=== PATIENT | male | born 1955 | race Caucasian/White ===

== ENCOUNTER 2019-08-22 10:31 | Outpatient (CLI) | payer BC, SELFPAY ==
[2019-08-22 10:56] LABS: Basophils Absolute Auto 0.1 K/mm3 (0.0-0.1); Eosinophils Absolute Auto 0.2 K/mm3 (0-0.3); Eosinophils Percent Auto 3.5 % (0-4.4); Hematocrit 44.9 % (42.0-52.0); Hemoglobin 15.6 g/dL (14.0-18.0); Immature Granulocyte Absolute 0.03 K/mm3 (0.00-0.031); Immature Granulocyte Percent A 0.6 % (0-0.5); Lymphocytes Absolute Auto 1.31 K/mm3 (0.9-3.2); Lymphocytes Percent Auto 25.2 % (18.3-44.2); Mean Corpuscular HGB Conc 34.7 g/dl (32-36); Mean Corpuscular Hemoglobin 31.5 pg (26-34); Mean Corpuscular Volume 90.7 fl (80-100); Mean Platelet Volume 9.7 fl (7.4-10.4); Monocytes Absolute Auto 0.7 K/mm3 (0.1-0.6); Monocytes Percent Auto 13.1 % (2.6-8.5); Neutrophils Absolute Auto 2.9 K/mm3 (1.3-6.7); Neutrophils Percent Auto 56.6 % (45.5-73.1); Platelet Count Result 213 k/mm3 (150-375); Red Blood Count 4.95 M/mm3 (4.6-6.20); Red Cell Distribution Width 13.1 % (11.5-14.5); White Blood Count 5.2 K/mm3 (4.5-10.0)
[2019-08-22 11:07] LABS: Hemoglobin A1C 5.5 % (<5.7)
[2019-08-22 11:08] LABS: Blood Urea Nitrogen 35 mg/dL (9-20); Carbon Dioxide 27 mmol/L (22-30); Chloride 104 mmol/L (98-107); Cholesterol 189 mg/dL (0-200); Estimated Glomerular Filt Rate > 60; Glucose 108 mg/dL (75-110); HDL Direct 40 mg/dL; Potassium 4.2 mmol/L (3.4-5.0); Sodium 140 mmol/L (137-145); Triglycerides 171 mg/dL (<150)
[2019-08-22 11:19] LABS: LDL Cholesterol Direct 109 mg/dL
[2019-08-22 11:39] LABS: Prostate Specific Antigen 0.6 ng/mL (< OR = 4.0)
[2019-08-24 05:07] LABS: Homocysteine 8.5 umol/L (<11.4)
[2019-08-29 15:54] LABS: Triiodothyronine T3 Free 3.4 pg/mL (2.3-4.2)
== END 2019-08-22 10:32 | disposition home or self-care (01) ==
PROVIDERS: PCP Internal Medicine; Visit Provider Internal Medicine
DX: E78.2 Mixed hyperlipidemia (principal); R94.6 Abnormal results of thyroid function studies; Z12.5 Encounter for screening for malignant neoplasm of prostate; Z79.899 Other long term (current) drug therapy
CPT/HCPCS: 36415; 80048; 80061; 82542; 83036; 83090; 84153; 84439; 84443; 84481; 85025; G0103

== ENCOUNTER 2020-03-04 07:18 | Outpatient (CLI) | payer BC, SELFPAY ==
[2020-03-04 08:07] LABS: Blood Urea Nitrogen 26 mg/dL (9-20); Calcium 8.8 mg/dL (8.4-10.2); Carbon Dioxide 32 mmol/L (22-30); Chloride 100 mmol/L (98-107); Estimated Glomerular Filt Rate > 60; Glucose 121 mg/dL (75-110); Sodium 136 mmol/L (137-145)
[2020-03-04 08:36] LABS: Free T4 Free Thyroxine 0.97 ng/mL (0.78-2.19)
[2020-03-05 14:07] LABS: Cholesterol 146 mg/dL (0-200); HDL Direct 30 mg/dL; Triglycerides 364 mg/dL (<150)
[2020-03-05 14:13] LABS: LDL Cholesterol Direct 71 mg/dL
== END 2020-03-04 07:19 | disposition home or self-care (01) ==
PROVIDERS: PCP Internal Medicine; Visit Provider Internal Medicine
DX: Z79.899 Other long term (current) drug therapy (principal); E78.2 Mixed hyperlipidemia
CPT/HCPCS: 36415; 80048; 80061; 84439; 84443

== ENCOUNTER 2020-05-14 09:07 | Outpatient (CLI) | payer BC, SELFPAY ==
[2020-05-14 09:59] LABS: Basophils Absolute Auto 0.1 K/mm3 (0.0-0.1); Eosinophils Absolute Auto 0.2 K/mm3 (0-0.3); Eosinophils Percent Auto 3.5 % (0-4.4); Hematocrit 42.1 % (42.0-52.0); Hemoglobin 14.6 g/dL (14.0-18.0); Immature Granulocyte Absolute 0.04 K/mm3 (0.00-0.031); Immature Granulocyte Percent A 0.8 % (0-0.5); Lymphocytes Absolute Auto 1.32 K/mm3 (0.9-3.2); Lymphocytes Percent Auto 27.3 % (18.3-44.2); Mean Corpuscular HGB Conc 34.7 g/dl (32-36); Mean Corpuscular Hemoglobin 31.3 pg (26-34); Mean Corpuscular Volume 90.3 fl (80-100); Mean Platelet Volume 10.3 fl (7.4-10.4); Monocytes Absolute Auto 0.6 K/mm3 (0.1-0.6); Neutrophils Absolute Auto 2.6 K/mm3 (1.3-6.7); Neutrophils Percent Auto 54.4 % (45.5-73.1); Platelet Count Result 207 k/mm3 (150-375); Red Blood Count 4.66 M/mm3 (4.6-6.20); Red Cell Distribution Width 13.5 % (11.5-14.5); White Blood Count 4.8 K/mm3 (4.5-10.0)
[2020-05-14 10:18] LABS: Alanine Aminotransferase 22 U/L (4-50); Albumin Level 4.3 g/dL (3.5-5.1); Alkaline Phosphatase 38 U/L (38-126); Anion Gap 6 mmol/L (8-16); Aspartate Amino Transferase 25 U/L (17-59); Bilirubin,Total 0.3 mg/dL (0.2-1.3); Blood Urea Nitrogen 32 mg/dL (9-20); Calcium 8.9 mg/dL (8.4-10.2); Carbon Dioxide 29 mmol/L (22-30); Chloride 103 mmol/L (98-107); Creatine Kinase 94 U/L (55-170); Estimated Glomerular Filt Rate > 60; Glucose 111 mg/dL (75-110); Potassium 4.1 mmol/L (3.4-5.0); Sodium 138 mmol/L (137-145)
[2020-05-14 10:43] LABS: Hemoglobin A1C 5.6 % (<5.7)
[2020-05-15 18:19] LABS: Cholesterol 154 mg/dL (0-200); HDL Direct 44 mg/dL; Triglycerides 103 mg/dL (<150)
[2020-05-15 18:30] LABS: LDL Cholesterol Direct 90 mg/dL
[2020-05-17 06:48] LABS: Homocysteine 12.3 umol/L (<11.4)
[2020-05-17 20:02] LABS: Vitamin D 1,25 (OH)2 Total 66 pg/mL (18-72); Vitamin D2 1,25 (OH)2 <8 pg/mL; Vitamin D3 1,25 (OH)2 66 pg/mL
== END 2020-05-14 09:08 | disposition home or self-care (01) ==
LOC: ANHLAB 09:08
PROVIDERS: PCP Internal Medicine; Visit Provider Internal Medicine
DX: E55.9 Vitamin D deficiency, unspecified (principal); Z79.899 Other long term (current) drug therapy; R79.89 Other specified abnormal findings of blood chemistry
CPT/HCPCS: 36415; 80053; 80061; 82550; 82652; 83036; 83090; 85025

== ENCOUNTER 2020-06-25 10:49 | Outpatient (CLI) | payer BC, SELFPAY ==
--- NOTE | ~2020-06-25 | CT_ITS ---
EXAMINATION: CT abdomen pelvis w con DATE: 06/25/2020 12:48 INDICATION: Left low abdominal pain for one week TECHNIQUE: Computed tomography (CT) of the abdomen and pelvis was performed with 100 cc Omnipaque 350 intravenous contrast. Automated exposure control and iterative reconstruction technique were employe d. Exam dose: 589.28 mGy-cm total exam DLP. COMPARISON: None. FINDINGS: The lung bases are clear. Normal heart size. No pericardial or pleural effusion. There are multiple hepatic cysts, measuring up to approximately 1.4 centers maximal dimension. No alvaro picious hepatic mass is detected. The gallbladder is present. No bile duct or pancreatic duct dilatat ion. No pancreatic mass lesion or calcification. Normal splenic size. Normal morphology of the adrena l glands. Approximately 6.5 mm right renal cyst. Nonobstructing lower pole 4 mm left renal calculus. No ureteral calculus or hydroureteronephrosis is noted on either side. The urinary bladder is unremarkable. There is mild prostate enlargement. There are numerous prostate calcifications. There is atherosclerotic calcification of the abdominal aorta. No abdominal aortic aneurysm. No intra peritoneal or retroperitoneal or pelvic mass lesion or adenopathy or ascites. There are numerous diverticula of the sigmoid and descending colon. There is a focal area of pericoli c fat stranding descending colon consistent with uncomplicated mild distal descending colon diverticu litis. No abscess. No free intraperitoneal air is noted. Small fat-containing inguinal hernias. Degenerative spurring of the lower thoracic spine and to a lesser extent the lumbar spine. No suspici ous osteolytic or osteoblastic lesions are noted. IMPRESSION: Mild localized distal descending colon diverticulitis Hepatic and right renal cysts Nonobstructing lower pole left renal 4 mm calculus I telephoned the results to Dr. Jackson on 06/25/2020 at 1300 hours. Reviewed, dictated and finalized at [facility]. Reviewed, dictated and finalized at location [facility].
[2020-06-25 12:41] LABS: Estimated Glomerular Filt Rate > 60
== END 2020-06-25 10:50 | disposition home or self-care (01) ==
PROVIDERS: PCP Internal Medicine; Visit Provider Internal Medicine
DX: K76.89 Other specified diseases of liver (principal); N28.1 Cyst of kidney, acquired; N20.0 Calculus of kidney
CPT/HCPCS: 74177; Q9967

== ENCOUNTER 2020-09-09 08:31 | Outpatient (CLI) | payer BC, SELFPAY ==
[2020-09-09 08:56] LABS: Basophils Percent Auto 0.7 % (0.2-1.2); Eosinophils Absolute Auto 0.2 K/mm3 (0-0.3); Eosinophils Percent Auto 3.2 % (0-4.4); Hematocrit 43.7 % (42.0-52.0); Hemoglobin 15.3 g/dL (14.0-18.0); Immature Granulocyte Absolute 0.05 K/mm3 (0.00-0.031); Immature Granulocyte Percent A 0.8 % (0-0.5); Mean Corpuscular Hemoglobin 31.5 pg (26-34); Mean Corpuscular Volume 90.1 fl (80-100); Mean Platelet Volume 9.4 fl (7.4-10.4); Monocytes Absolute Auto 0.8 K/mm3 (0.1-0.6); Monocytes Percent Auto 12.8 % (2.6-8.5); Neutrophils Absolute Auto 3.5 K/mm3 (1.3-6.7); Neutrophils Percent Auto 57.5 % (45.5-73.1); Platelet Count Result 226 k/mm3 (150-375); Red Blood Count 4.85 M/mm3 (4.6-6.20); Red Cell Distribution Width 13.2 % (11.5-14.5)
[2020-09-09 09:08] LABS: Alanine Aminotransferase 24 U/L (4-50); Albumin Level 4.1 g/dL (3.5-5.1); Alkaline Phosphatase 35 U/L (38-126); Anion Gap 6 mmol/L (8-16); Aspartate Amino Transferase 30 U/L (17-59); Bilirubin,Total 0.5 mg/dL (0.2-1.3); Blood Urea Nitrogen 34 mg/dL (9-20); Calcium 8.9 mg/dL (8.4-10.2); Carbon Dioxide 28 mmol/L (22-30); Chloride 103 mmol/L (98-107); Cholesterol 182 mg/dL (0-200); Creatine Kinase 112 U/L (55-170); Estimated Glomerular Filt Rate > 60; Glucose 109 mg/dL (75-110); HDL Direct 51 mg/dL; Sodium 137 mmol/L (137-145); Triglycerides 108 mg/dL (<150)
[2020-09-09 09:18] LABS: LDL Cholesterol Direct 121 mg/dL
[2020-09-09 09:36] LABS: Free T4 Free Thyroxine 0.87 ng/mL (0.78-2.19)
[2020-09-09 09:39] LABS: Prostate Specific Antigen 0.5 ng/mL (< OR = 4.0)
[2020-09-12 12:49] LABS: Homocysteine 10.1 umol/L (<11.4)
== END 2020-09-09 08:32 | disposition home or self-care (01) ==
PROVIDERS: PCP Internal Medicine; Visit Provider Internal Medicine
DX: R94.6 Abnormal results of thyroid function studies (principal); Z12.5 Encounter for screening for malignant neoplasm of prostate; Z79.899 Other long term (current) drug therapy; E78.1 Pure hyperglyceridemia; R79.89 Other specified abnormal findings of blood chemistry
CPT/HCPCS: 36415; 80053; 80061; 82550; 83090; 84153; 84439; 84443; 85025; G0103

== ENCOUNTER → 2020-12-24 04:28 | Outpatient (CLI) | payer BC, SELFPAY ==
[2020-12-24 19:03] LABS: SARS-CoV-2 RNA PCR Negative
== END ==
PROVIDERS: PCP Internal Medicine; Visit Provider Internal Medicine Gastroenterology
DX: Z01.812 Encounter for preprocedural laboratory examination (principal); Z20.822 Contact with and (suspected) exposure to COVID-19
CPT/HCPCS: C9803; U0003; U0005

== ENCOUNTER 2020-12-27 02:16 | Day surgery (SDC) | payer BC, SELFPAY ==
[2020-12-16 14:41] VITALS: BMI 30.9
[2020-12-27 10:49] VITALS: BP 118/75; PULSE 80; RESP 18; TEMP 36.1; O2SAT 98
--- NOTE | 2020-12-27 10:57 | WPDANESEPPF ---
Anes - Initial Pre Proc Eval Procedure: Operation Date: 12/27/20 11:30 Proposed Procedures p Screening Colonoscopy - Anastacio Ewing MD Date/Time: 12/27/20 10:57 Surgeon: Anastacio Ewing MD Pre Op Diagnosis: neoplasm screening Patient Data Age: 65 Gender: M Height: 5 ft 9 in Weight: 97.1 kg Last Vital Signs Temp 36.1 C L 12/27/20 10:49 Pulse 80 12/27/20 10:49 Resp 18 12/27/20 10:49 BP 118/75 12/27/20 10:49 Pulse Ox 98 12/27/20 10:49 Allergies Allergy/AdvReac Type Severity Reaction Status Date / Time Fsvndqz-Xrc-Had Reductase AdvReac Muscle Pain Verified 12/27/20 10:48 Inhibitor Home Medications Medication Instructions Recorded Confirmed Type ezetimibe 10 mg tablet 10 mg PO DAILY #90 tablet 11/14/19 12/16/20 Rx omega-3 fatty acids 1,000 mg 2,000 mg PO BID #90 cap 03/06/20 12/16/20 Rx capsule fenofibrate micronized 134 mg 134 mg PO DAILY #90 cap 03/11/20 12/16/20 Rx capsule folic acid 1 mg tablet 1 mg PO DAILY #90 tablet 05/22/20 12/16/20 Rx aspirin 81 mg tablet,delayed 81 mg PO DAILY 06/25/20 12/16/20 History release diphenhydramine HCl 50 mg capsule 50 mg PO .nightly PRN cap 06/25/20 12/16/20 History tamsulosin [Flomax] 0.4 mg PO DAILY 12/16/20 History Patient hx anesthesia problems: none Family hx anesthesia problems: none PMFSH Past Medical History Medical History Abnormal thyroid function test BMI 29.0-29.9,adult BMI 31.0-31.9,adult BMI 32.0-32.9,adult Colon cancer screening Elevated homocysteine Encounter for preventive health examination Encounter for routine adult health examination without abnormal findings Encounter for special screening examination for neoplasm of prostate Follow up Frequent stools Hyperlipidemia LLQ abdominal pain Nocturia On correction drug therapy RBBB (right bundle branch block) Skin tag Statin intolerance Urinary urgency Vitamin D deficiency Family History Family History Father Malignant neoplasm of prostate Mother Family history of malignant neoplasm of breast in first degree relative Other Diabetes mellitus Family history of arthritis Family history of malignant neoplasm Hypertension Social History Social History Smoking status: Never smoker Alcohol intake: current Drinks per week: 5 Living arrangements: with family Gender identity (if verbalized by the patient): Male Sexual Orientation (if Verbalized by the Patient): Straight or Heterosexual Spiritual care concerns: No Anes - Eval Final PreProcedure Day of Procedure 12/27/20 10:57 Patient weight: obese Heart: regular rate and rhythm Lungs: clear to auscultation Airway: Mallampati scale class II Neurological: alert and oriented Last oral intake: >/= 8 hours ASA classification: II Emergent: no Anesthetic plan: proceed Anesthesia type and monitoring: general GIVS and standard monitoring Informed Consent: The patient's anesthetic plan and its attendant risks and benefits were discussed with the patient/family/POA. Questions were solicited and answers provided to the satisfaction of the patient/family/POA.
[2020-12-27] MEDS: LACTATED RINGERS 1,000 ML 150 ML IV CONT (11:04)
--- NOTE | 2020-12-27 11:21 | PM.HPGS ---
History of Present Illness History of Present Illness Consent: Risks, benefits, and alternatives have been discussed and questions answered. Patient agrees to proceed with procedure. Chief complaint: neoplasm screening Narrative: Michael Gross is a 65 year old male here for colon cancer screening. He had a polyp removed 5 years ago Review of Systems Review of Systems: All systems reviewed & are unremarkable except as noted in HPI and below PMFSH Past Medical History Medical History Abnormal thyroid function test BMI 29.0-29.9,adult BMI 31.0-31.9,adult BMI 32.0-32.9,adult Colon cancer screening Elevated homocysteine Encounter for preventive health examination Encounter for routine adult health examination without abnormal findings Encounter for special screening examination for neoplasm of prostate Follow up Frequent stools Hyperlipidemia LLQ abdominal pain Nocturia On longterm drug therapy RBBB (right bundle branch block) Skin tag Statin intolerance Urinary urgency Vitamin D deficiency Family History Family History Father Malignant neoplasm of prostate Mother Family history of malignant neoplasm of breast in first degree relative Other Diabetes mellitus Family history of arthritis Family history of malignant neoplasm Hypertension Social History Social History Smoking status: Never smoker Alcohol intake: current Drinks per week: 5 Living arrangements: with family Gender identity (if verbalized by the patient): Male Sexual Orientation (if Verbalized by the Patient): Straight or Heterosexual Spiritual care concerns: No Meds Home Medications and Allergies Home Medications Medication Instructions Recorded Confirmed Type ezetimibe 10 mg tablet 10 mg PO DAILY #90 tablet 11/14/19 12/16/20 Rx omega-3 fatty acids 1,000 mg 2,000 mg PO BID #90 cap 03/06/20 12/16/20 Rx capsule fenofibrate micronized 134 mg 134 mg PO DAILY #90 cap 03/11/20 12/16/20 Rx capsule folic acid 1 mg tablet 1 mg PO DAILY #90 tablet 05/22/20 12/16/20 Rx aspirin 81 mg tablet,delayed 81 mg PO DAILY 06/25/20 12/16/20 History release diphenhydramine HCl 50 mg capsule 50 mg PO .nightly PRN cap 06/25/20 12/16/20 History tamsulosin [Flomax] 0.4 mg PO DAILY 12/16/20 History Allergies Allergy/AdvReac Type Severity Reaction Status Date / Time Yofomqs-Hcz-Qfn Reductase AdvReac Muscle Pain Verified 12/27/20 10:48 Inhibitor Vital Signs Vital Signs - 24 hr 12/27/20 10:49 Temperature 36.1 C L Pulse Rate 80 Respiratory Rate 18 Blood Pressure 118/75 Pulse Oximetry 98 Exam Resp: Auscultation: clear to auscultation bilaterally Cardio: Rate: regular rate Rhythm: regular rhythm GI: GI Palp: Yes Soft to palpation and No Tenderness to palpation present (GI) Assessment and Plan Assessment and plan (1) Colon cancer screening: Code(s): Z12.11 - Encounter for screening for malignant neoplasm of colon Status: Acute Assessment and Plan: Colonoscopy with possible biopsy or polypectomy or cautery or injection of substances.
[2020-12-27 11:44] VITALS: BP 109/66; PULSE 75; RESP 17; O2SAT 99
[2020-12-27 11:54] VITALS: BP 129/62; PULSE 71; RESP 16; O2SAT 99
[2020-12-27 12:04] VITALS: BP 112/77; PULSE 68; RESP 18; O2SAT 99
== END 2020-12-27 12:30 | disposition home or self-care (01) ==
PROVIDERS: PCP Internal Medicine; Visit Provider Internal Medicine Gastroenterology
PROC: 0DJD8ZZ Inspection of Lower Intestinal Tract, Via Natural or Artificial Opening Endoscopic (ICD-10-PCS; CPT 45378; principal; 2020-12-27 11:30)
DX: Z12.11 Encounter for screening for malignant neoplasm of colon (principal); D12.2 Benign neoplasm of ascending colon; K57.30 Diverticulosis of large intestine without perforation or abscess without bleeding; Z79.82 Long term (current) use of aspirin; E78.5 Hyperlipidemia, unspecified; I45.10 Unspecified right bundle-branch block; E55.9 Vitamin D deficiency, unspecified; E66.8 Other obesity; Z68.31 Body mass index [BMI] 31.0-31.9, adult
CPT/HCPCS: 45380; 88305; J2704; J7120

== ENCOUNTER 2021-02-26 09:16 | Outpatient (CLI) | payer BC, SELFPAY ==
[2021-02-26 09:56] LABS: Anion Gap 7 mmol/L (8-16); Blood Urea Nitrogen 31 mg/dL (9-20); Calcium 8.8 mg/dL (8.4-10.2); Carbon Dioxide 27 mmol/L (22-30); Chloride 106 mmol/L (98-107); Cholesterol 222 mg/dL (0-200); Estimated Glomerular Filt Rate > 60; Glucose 112 mg/dL (75-110); HDL Direct 41 mg/dL; Potassium 4.2 mmol/L (3.4-5.0); Sodium 140 mmol/L (137-145); Triglycerides 173 mg/dL (<150)
[2021-02-26 10:07] LABS: LDL Cholesterol Direct 114 mg/dL
[2021-02-26 10:30] LABS: Free T4 Free Thyroxine 0.79 ng/mL (0.78-2.19)
[2021-03-01 05:09] LABS: Vitamin D 1,25 (OH)2 Total 44 pg/mL (18-72); Vitamin D2 1,25 (OH)2 <8 pg/mL; Vitamin D3 1,25 (OH)2 44 pg/mL
== END 2021-02-26 09:17 | disposition home or self-care (01) ==
PROVIDERS: PCP Internal Medicine; Visit Provider Internal Medicine
DX: R94.6 Abnormal results of thyroid function studies (principal); E55.9 Vitamin D deficiency, unspecified; E78.1 Pure hyperglyceridemia; Z79.899 Other long term (current) drug therapy
CPT/HCPCS: 36415; 80048; 80061; 82652; 84439; 84443

== ENCOUNTER → 2021-04-04 06:57 | Outpatient (CLI) | payer BC, SELFPAY ==
[2021-04-04 19:11] LABS: SARS-CoV-2 RNA PCR Negative
== END ==
PROVIDERS: PCP Internal Medicine; Visit Provider Internal Medicine
DX: R68.89 Other general symptoms and signs (principal); Z20.822 Contact with and (suspected) exposure to COVID-19
CPT/HCPCS: C9803; U0003; U0005

== ENCOUNTER 2021-06-25 13:23 | Outpatient (CLI) | payer BC, SELFPAY ==
[2021-06-25 14:21] LABS: Basophils Absolute Auto 0.1 K/mm3 (0.0-0.1); Basophils Percent Auto 0.8 % (0.2-1.2); Eosinophils Absolute Auto 0.2 K/mm3 (0-0.3); Eosinophils Percent Auto 2.9 % (0-4.4); Hematocrit 43.7 % (42.0-52.0); Hemoglobin 15.9 g/dL (14.0-18.0); Immature Granulocyte Absolute 0.03 K/mm3 (0.00-0.031); Immature Granulocyte Percent A 0.5 % (0-0.5); Lymphocytes Absolute Auto 1.46 K/mm3 (0.9-3.2); Lymphocytes Percent Auto 23.2 % (18.3-44.2); Mean Corpuscular HGB Conc 36.4 g/dl (32-36); Mean Corpuscular Hemoglobin 32.5 pg (26-34); Mean Corpuscular Volume 89.4 fl (80-100); Mean Platelet Volume 10.1 fl (7.4-10.4); Monocytes Absolute Auto 0.7 K/mm3 (0.1-0.6); Monocytes Percent Auto 11.1 % (2.6-8.5); Neutrophils Absolute Auto 3.9 K/mm3 (1.3-6.7); Neutrophils Percent Auto 61.5 % (45.5-73.1); Platelet Count Result 189 k/mm3 (150-375); Red Blood Count 4.89 M/mm3 (4.6-6.20); Red Cell Distribution Width 13.7 % (11.5-14.5); White Blood Count 6.3 K/mm3 (4.5-10.0)
[2021-06-25 14:31] LABS: Alanine Aminotransferase 31 U/L (4-50); Albumin Level 4.6 g/dL (3.5-5.1); Alkaline Phosphatase 57 U/L (38-126); Anion Gap 8 mmol/L (8-16); Aspartate Amino Transferase 29 U/L (17-59); Bilirubin,Total 0.6 mg/dL (0.2-1.3); Blood Urea Nitrogen 26 mg/dL (9-20); Calcium 9.2 mg/dL (8.4-10.2); Carbon Dioxide 28 mmol/L (22-30); Chloride 102 mmol/L (98-107); Cholesterol 205 mg/dL (0-200); Estimated Glomerular Filt Rate > 60; Glucose 101 mg/dL (65-110); HDL Direct 41 mg/dL; Sodium 138 mmol/L (137-145); Triglycerides 439 mg/dL (<150)
[2021-06-25 14:42] LABS: LDL Cholesterol Direct 83 mg/dL
[2021-06-30 00:12] LABS: Vitamin D 1,25 (OH)2 Total 32 pg/mL (18-72); Vitamin D2 1,25 (OH)2 <8 pg/mL; Vitamin D3 1,25 (OH)2 32 pg/mL
== END 2021-06-25 13:24 | disposition home or self-care (01) ==
PROVIDERS: PCP Internal Medicine; Visit Provider Internal Medicine
DX: R94.6 Abnormal results of thyroid function studies (principal); Z79.899 Other long term (current) drug therapy; E55.9 Vitamin D deficiency, unspecified; E78.1 Pure hyperglyceridemia
CPT/HCPCS: 36415; 80053; 80061; 82652; 84439; 84443; 85025

== ENCOUNTER 2021-09-16 13:22 | Outpatient (CLI) | payer BC, SELFPAY ==
[2021-09-16 14:47] LABS: SARS-CoV-2 RNA PCR Negative (Negative)
[2021-09-17 07:13] LABS: Influenza A QL RT-PCR Negative (Negative); Influenza B QL RT-PCR Negative (Negative)
== END 2021-09-16 13:23 | disposition home or self-care (01) ==
LOC: CHSLAB 13:25
PROVIDERS: PCP Internal Medicine; Visit Provider Internal Medicine
DX: R05.9 Cough, unspecified (principal); Z20.822 Contact with and (suspected) exposure to COVID-19
CPT/HCPCS: 87502; C9803; U0003; U0005

== ENCOUNTER 2021-10-16 10:18 | Outpatient (CLI) | payer BC, SELFPAY ==
--- NOTE | ~2021-10-16 | XR_ITS ---
EXAMINATION: XR knee LT 3V DATE: 10/16/2021 10:48 INDICATION: Unspecified injury of left lower leg, initial encounter. TECHNIQUE: 3 views of left knee including standing views were obtained. COMPARISON: None. FINDINGS: Bone alignment is normal. No fracture. There is mild tricompartmental osteoarthritis charac terized by tiny marginal osteophytes. No joint space narrowing. There is a small knee joint effusion. IMPRESSION: 1. Mild left knee osteoarthritis. 2. Small left knee joint effusion. Reviewed, dictated and finalized at location [facility]. [employer] EXECUTIVE
== END 2021-10-16 10:19 | disposition home or self-care (01) ==
PROVIDERS: PCP Internal Medicine; Visit Provider Internal Medicine
DX: S89.92XA Unspecified injury of left lower leg, initial encounter (principal); X58.XXXA Exposure to other specified factors, initial encounter; M17.12 Unilateral primary osteoarthritis, left knee; M25.462 Effusion, left knee
CPT/HCPCS: 73562

== ENCOUNTER → 2021-11-19 10:05 | Outpatient (CLI) | payer BC, MEDICARE, SELFPAY ==
--- NOTE | ~2021-11-19 | MR_ITS ---
EXAMINATION: MR knee LT wo con DATE: 11/19/2021 11:02 INDICATION: Left knee pain. TECHNIQUE: Magnetic resonance imaging (MRI) of the left knee was performed without intravenous contra st. Sequences included axial PD-weighted FS FSE, coronal PD-weighted FSE and PD-weighted FS FSE, sagi ttal PD-weighted FSE, and sagittal T2-weighted FS FSE. COMPARISON: Left knee radiographs 10/16/2021 FINDINGS: Medial compartment: There is a complex tear of posterior horn of medial meniscus. There is partial-thickness cartilage lo ss of femoral condyle, worst at the central and lateral articular surface. There is cartilage surface irregularity of tibial condyle. Lateral compartment: Lateral meniscus is normal. Lateral compartment cartilage is normal. Patellofemoral compartment: There is shallow partial-thickness cartilage loss of patellar lateral facet. There is cartilage surfa ce irregularity of medial facet. Trochlear cartilage is normal. Ligaments and tendons: The anterior and posterior cruciate ligaments are normal. There is edema around medial collateral lig ament, consistent with mild sprain. Lateral collateral ligament complex is normal. There is mild enriquez llar tendinopathy. Fluid: There is a moderate-sized knee joint effusion. There is a moderate-sized ruptured Roland's cyst. IMPRESSION: 1. Mild chondrosis of medial and patellofemoral compartments. 2. Complex tear of medial meniscus. 3. Mild sprain of medial collateral ligament (grade 1). 4. Moderate-sized knee joint effusion. 5. Moderate-sized ruptured Roland's cyst. Reviewed, dictated and finalized at location A. MOWER
== END ==
PROVIDERS: PCP Internal Medicine; Visit Provider Nurse Practitioner Family
DX: M71.22 Synovial cyst of popliteal space [Baker], left knee (principal); M25.462 Effusion, left knee; S83.232A Complex tear of medial meniscus, current injury, left knee, initial encounter; X58.XXXA Exposure to other specified factors, initial encounter
CPT/HCPCS: 73721

== ENCOUNTER 2022-01-14 07:49 | Outpatient (CLI) | payer MEDICARE, BC, SELFPAY ==
--- NOTE | 2022-01-14 08:00 | ECG_ITS ---
Measurements Intervals [place] Rate: 80 P: 33 AR: 172 QRS: -22 QRSD: 113 T: 5 QT: 389 QTc: 449 Interpretive Statements SINUS RHYTHM BORDERLINE LEFT AXIS DEVIATION [QRS AXIS < -20] MODERATE INTRAVENTRICULAR CONDUCTION DELAY [110+ ms QRS DURATION] NO PREVIOUS ECG AVAILABLE FOR COMPARISON Electronically Signed On 01-14-2022 13:46:28 CDT by Radha Stark M.D.
== END 2022-01-14 07:50 | disposition home or self-care (01) ==
LOC: ANHSURGERY 07:55
PROVIDERS: PCP Internal Medicine; Visit Provider Orthopaedic Surgery
DX: E78.00 Pure hypercholesterolemia, unspecified (principal); Z01.818 Encounter for other preprocedural examination; R94.31 Abnormal electrocardiogram [ECG] [EKG]
CPT/HCPCS: 93005

== ENCOUNTER 2022-01-20 00:07 | Day surgery (SDC) | payer MEDICARE, BC, SELFPAY ==
--- NOTE | 2022-01-09 15:03 | PC.NURSE ---
Report to the Outpatient Waiting Room, entrance under the green pavilion located off [facility], at time _1130_ on date _01/20/22_. OR Time: _1:30 PM_. - You and your visitor will be asked a series of questions to screen for COVID 19 for your protection. - A mask is required within the hospital. One visitor will be allowed to accompany the patient into the hospital. Patients visitor will be instructed to remain with patient at all times or leave the building. We will allow the visitor to come back to the postoperative area when patient is ready. Preoperative COVID Testing Requirements: NONE Patients may have clear liquids (water, carbonated beverages, clear teas, apple juice) until 3 hours prior to surgery (1030 AM) with a maximum of 20 ounces. - No food from midnight until time of surgery Take the following medications with a SIP of water the morning of surgery: _NONE_ Medications to discontinue _ASPIRIN PER DR. MANN'S INSTRUCTIONS, FOLIC ACID & FISH OIL 3 DAYS PRIOR TO SURGERY PER ANESTHESIA, Date to take last dose 01/16/22_ Please no deodorant, or body powder the day of surgery. No jewelry (including any body piercings) or valuables the day of surgery, leave them at home. Please take a shower or bath the night before, or the morning of, surgery with an antibacterial soap. Wear comfortable, loose fitting clothing. - Jewelry must be removed prior to entering the operating room. Rings and piercings that are not removed may be cut off. - The hospital will not accept responsibility for valuables. - Please leave all valuables, including medications, at home the day of surgery. If you are going home after surgery, a licensed over the road driver must drive you home. - NO public transportation without another adult. - We recommend that an adult stay with you for 24 hours following discharge. - We also recommend that you do not drive, make important decision, drink alcoholic beverages, or take any drugs that were not prescribed by your health care provider for at least 24 hours after your discharge time. Follow any additional instructions given to you from your surgeon. Telephone instructions given to ___PT and asked if any additional questions and then verbalized understanding. Patient advised to call surgeon office or pre surgery nurse liaison [phone] if any additional questions.
[2022-01-09 15:16] VITALS: BMI 31.0
[2022-01-20] VITALS (9 sets, daily range): BP systolic 110–140; BP diastolic 68–91; PULSE 73–87; RESP 12–16; TEMP 36.4–36.6; O2SAT 96–100
--- NOTE | 2022-01-20 07:14 | WPDHPUPDATE1 ---
History and Physical Update Update Date/Time: 01/20/22 07:14 History and Physical has been reviewed, including an updated exam of the patient. There are NO changes in the patient's condition. Risks, benefits, and alternatives have been discussed and questions answered. Patient agrees to proceed with procedure.
[2022-01-20] MEDS: CELECOXIB 200 MG CAPSULE PO (09:19)
[2022-01-20] MEDS: LACTATED RINGERS 1,000 ML 30 ML IV CONT ×2 (09:25→12:32)
--- NOTE | 2022-01-20 10:46 | WPDANESEPPF ---
Anes - Initial Pre Proc Eval Procedure: Operation Date: 01/20/22 11:00 Proposed Procedures p Left Knee Athroscopy - Donte Owen MD Date/Time: 01/20/22 10:46 Surgeon: Donte Owen MD Pre Op Diagnosis: Lt Knee Medial Meniscus Tear Patient Data Age: 66 Gender: M Height: 1.75 m Weight: 96 kg Last Vital Signs Temp 36.6 C 01/20/22 09:10 Pulse 83 01/20/22 09:10 Resp 16 01/20/22 09:10 BP 125/80 01/20/22 09:10 Pulse Ox 97 01/20/22 09:10 Allergies Allergy/AdvReac Type Severity Reaction Status Date / Time Xbtecun-ARZ-NgE Reductase AdvReac Muscle Pain Verified 01/20/22 09:03 Inhibitor [Kwlscqw-Omr-Tyl Reductase Inhibitor] Home Medications Medication Instructions Recorded Confirmed Type omega-3 fatty acids 1,000 mg 2,000 mg PO BID #90 cap 03/06/20 01/20/22 Rx capsule fenofibrate micronized 134 mg 134 mg PO DAILY #90 cap 03/11/20 01/20/22 Rx capsule aspirin 81 mg tablet,delayed 81 mg PO DAILY 06/25/20 01/20/22 History release diphenhydramine HCl 50 mg capsule 50 mg PO .nightly PRN cap 06/25/20 01/20/22 History tamsulosin 0.4 mg capsule See Rx Instructions .ROUTE 03/05/21 01/20/22 Rx .COMPLEX #90 capsule ezetimibe 10 mg tablet 10 mg PO DAILY #90 tablet 03/26/21 01/20/22 Rx Nexletol 180 mg tablet 180 mg PO DAILY #90 tablet NS 07/03/21 01/20/22 Rx esomeprazole magnesium 40 mg 40 mg PO DAILY #90 cap 07/10/21 01/20/22 Rx capsule,delayed release folic acid 1 mg tablet 1 mg PO DAILY #90 tablet 07/10/21 01/20/22 Rx Patient hx anesthesia problems: none Family hx anesthesia problems: none Results Review: All pre-operative results and documents have been reviewed as part of the pre-operative evaluation. [facility] Past Medical History Medical History Abnormal thyroid function test BMI 29.0-29.9,adult BMI 31.0-31.9,adult BMI 32.0-32.9,adult Colon cancer screening Cough Elevated homocysteine Encounter for preventive health examination Encounter for routine adult health examination without abnormal findings Encounter for special screening examination for neoplasm of prostate Exposure to COVID-19 virus Fever Follow up Frequent stools GERD (gastroesophageal reflux disease) Hx of colonic polyps Hyperlipidemia Knee effusion Knee Injury Left knee pain LLQ abdominal pain Nausea Nocturia Numbness and tingling in left hand On buttermilk drier operator drug therapy KATELYN (obstructive sleep apnea) RBBB (right bundle branch block) Skin tag Statin intolerance Urinary urgency Vitamin D deficiency Wears glasses Surgical History Surgical History History of hernia repair History of right knee surgery Family History Family History Father Malignant neoplasm of prostate Mother Family history of malignant neoplasm of breast in first degree relative Other Diabetes mellitus Family history of arthritis Family history of malignant neoplasm Hypertension Social History Social History Smoking status: Never smoker Second hand tobacco smoke exposure: No Alcohol intake: current Drinks per week: 5 Substance use: never Substance use type: does not use Living arrangements: with family Gender identity (if verbalized by the patient): Male Sexual Orientation (if Verbalized by the Patient): Straight or Heterosexual Spiritual care concerns: No Anes - Eval Final PreProcedure Day of Procedure 01/20/22 10:46 Patient weight: obese Heart: regular rate and rhythm Lungs: clear to auscultation Airway: Mallampati scale class III Neurological: alert and oriented Last oral intake: >/= 8 hours ASA classification: III Emergent: no Anesthetic plan: proceed Anesthesia type and monitoring: general LMA and standard monitoring Results Review: A
[2022-01-20] MEDS: ceFAZolin 2 GM/D5W 50 ML 2 GM/50 ML BAG IVPB (11:20)
[2022-01-20] MEDS: BUPIVACAINE HCL 0.5% PF 30 ML VIAL INFILTRATE (11:40)
[2022-01-20] MEDS: methylPREDNISolone ACETATE 80 MG/ML VIAL IM (11:59)
[2022-01-20] MEDS: fentaNYL CITRATE INJ (*CRX) 100 MCG/2 ML VIAL 25 MCG IV PUSH ×4 (12:40→12:57)
--- NOTE | 2022-01-20 12:43 | W.PM.PROC2 ---
Procedure Note - Detailed Date of Procedure 01/20/22 Pre-op Diagnosis Lt Knee Medial Meniscus Tear Post-op Diagnosis Same Procedure Performed LEFT KNEE SCOPE Surgeon Donte Owen MD Anesthesia General Description of Procedure PATIENT WAS TAKEN TO THE OR. LEFT LEG WAS PREPPED AND DRAPED STERILE. TROCARS WERE PLACED IN THE USUAL FASHION. CAMERA WAS INTRODUCED. THERE WAS CHONDROMALACIA TO THE PATELLA FEMORAL JOINT. THERE WAS A LOT OF SYNOVITIS IN ALL COMPARTMENTS. THE MEDIAL COMPARTMENT SHOWED CHONDROMALACIA TO THE MEDIAL FEMORAL CONDYLE. A SHAVER WAS USED TO PREFORM A CHONDROPLASTY. THERE WAS A COMPLEX MEDIAL MENISCUS TEAR. THE TEAR WAS RESECTED WITH A BITER AND A SHAVER DOWN TO A SMOOTH BASE. ABOUT 25% OF THE MENISCUS WAS REMOVED. THE ACL WAS INTACT. THE LATERAL MENISCUS WAS NOT TORN. THE LAT COMPARTMENT HAD MINIMAL CHONDROMALACIA. CHONDROPLASTY WAS PREFORMED. A SYNOVECTOMY WAS PREFORMED WELL. THE PATELLO FEMORAL JOINT UNDERWENT CHONDROPLASTY. THERE WAS GRADE 2 CHONDROMALACIA IN PART OF THE TROCHLEA AND PART OF THE PATELLA. SYNOVECTOMY WAS PREFORMED IN THE SUPERIOR MEDIAL COMPARTMENT OVER A LARGE PLICA. THE WOUNDS WERE APPROXIMATED WITH 4.0 NYLON. STERILE DRESSING WAS APPLIED. PATIENT WAS EXTUBATED. Estimated Blood Loss -5.0 Complications No immediate complications Condition Stable Disposition PACU
[2022-01-20] MEDS: oxyCODONE HCL (*CRX) 5 MG TAB IR PO (13:49)
== END 2022-01-20 14:20 | disposition home or self-care (01) ==
PROVIDERS: PCP Internal Medicine; Visit Provider Orthopaedic Surgery
PROC: (CPT 29870; principal; 2022-01-20 11:00)
DX: M23.232 Derangement of other medial meniscus due to old tear or injury, left knee (principal); M94.262 Chondromalacia, left knee; M65.862 Other synovitis and tenosynovitis, left lower leg; M25.562 Pain in left knee; K21.9 Gastro-esophageal reflux disease without esophagitis; E78.5 Hyperlipidemia, unspecified; R35.1 Nocturia; G47.33 Obstructive sleep apnea (adult) (pediatric); R20.0 Anesthesia of skin; R20.2 Paresthesia of skin; E55.9 Vitamin D deficiency, unspecified; I45.10 Unspecified right bundle-branch block; Z79.82 Long term (current) use of aspirin; M25.462 Effusion, left knee; R94.6 Abnormal results of thyroid function studies; E66.9 Obesity, unspecified; Z68.31 Body mass index [BMI] 31.0-31.9, adult
CPT/HCPCS: 29881; A9270; J0690; J1040; J1100; J2250; J2405; J2704; J3010; J7120

== ENCOUNTER → 2022-03-16 09:06 | Outpatient (CLI) | payer MEDICARE, SELFPAY ==
--- NOTE | ~2022-03-16 | MR_ITS ---
EXAMINATION: MR knee LT wo con DATE: 03/16/2022 09:45 INDICATION: Left knee pain post injury 6 months prior. TECHNIQUE: Magnetic resonance imaging (MRI) of the left knee was performed without intravenous contra st. Sequences included coronal PD-weighted FSE, coronal PD-weighted FS FSE, sagittal T2-weighted FSE , sagittal PD-weighted FS FSE and axial PD weighted fat saturated FSE. COMPARISON: 11/19/2021 FINDINGS: Medial compartment: Interval decrease in size of the medial meniscal body and posterior horn consistent with interval par tial meniscectomy. Residual versus recurrent tear at the remaining body of the medial meniscus extend ing obliquely to the inferior articular surface near the remaining free edge. There is also a small, thin meniscal flap along the free edge of the medial meniscus at the junction of the body and posteri or horn. Marrow edema surrounding the linear low signal intensity subarticular stress/insufficiency f racture along the medial half of the anterior weightbearing medial femoral condyle with subtle depres jacki of the articular cortex but without a cortical step off. Mild chondral swelling the overlying ar ticular cartilage which appears to remain intact. Partial-thickness cartilage loss at the central karina ghtbearing medial femoral condyle with chondral fissuring posterolateral to the region of the fractur e which involves at least 50% of the cartilage thickness. Lateral compartment: Lateral meniscus is normal. Articular cartilage is normal. Patellofemoral compartment: No significant interval change in shallow chondral fissuring at the lateral patellar facet and mild p artial thickness chondral ulceration along the medial patellar facet. Trochlear cartilage appears nor mal. Ligaments and tendons: Anterior and posterior cruciate ligaments are normal. The fibular collateral ligament complex is norm al. Mild thickening of the proximal medial collateral ligament without significant surrounding edema consistent with mild scarring related to chronic sprain. Patellar tendon is normal. Enthesophytes and mild tendinopathy at the distal quadriceps tendon. Mild tendinopathy without discrete tear at the di stal semimembranosus tendon. The visualized medial and lateral hamstring tendons as well as the iliot ibial band are otherwise normal. Fluid: Moderate-sized left knee joint effusion. No loose osteochondral bodies identified. Small Roland's cyst . Osseous/other: Marrow signal is normal aside from the previously noted marrow edema surrounding the stress/insuffici ency fracture at the anterior weightbearing medial femoral condyle. No other fractures identified. Un changed lesion with increased fluid signal at the posterior metaphysis of the distal femur and statis tically most likely to represent an enchondroma. Scarring along arthroscopy port tracks at the medial and lateral aspect of Hoffa's fat pad. There is truncation of the posterior angle of Hoffa's fat pad likely related to interval synovectomy. IMPRESSION: 1. Mild depression of subarticular likely stress fracture at the lateral aspect of the anterior weigh tbearing medial femoral condyle which may be related to altered weight distribution resulting from th e medial meniscal tear and subsequent partial meniscectomy. 2. Interval partial meniscectomy involving the body and posterior horn of the medial meniscus with sm all residual versus recurrent tear as detailed above. 3. Mild osteoarthritis with moderate grade chondromalacia in the medial and patellofemoral compartmen ts. 4. Likely reactive moderate sized left knee joint effusion with small Roland's cyst. 5. Mild tendinopathy without discrete tear of the distal quadriceps and distal semimembranosus tendon s. Reviewed, dictated and finalized at location A. Electronically signed by Sergio Gomez M.D.
== END ==
PROVIDERS: PCP Internal Medicine; Visit Provider Orthopaedic Surgery
DX: M17.12 Unilateral primary osteoarthritis, left knee (principal); M25.462 Effusion, left knee
CPT/HCPCS: 73721

== ENCOUNTER 2022-05-22 01:32 | Day surgery (SDC) | payer MEDICARE, SELFPAY ==
--- NOTE | 2022-05-18 14:18 | PC.NURSE ---
Report to the Outpatient Waiting Room, entrance under the green pavilion located off [facility], at time 0615 on date __05/22/22 . OR Time: _08 . - You and your visitor will be asked to self-screen and do not enter if you have any COVID symptoms. - Only one visitor and NO children visitors are allowed at this time. - The patient visitor is requested to leave or wait in car when not with patient due to restrictions. - A mask is required within the hospital. Patients may have clear liquids (water, carbonated beverages, clear teas, apple juice) until 3 hours prior to surgery with a maximum of 20 ounces. - No food from midnight until time of surgery - Infants may have breast milk until 4 hours before surgery, infant formula 6 hours prior to surgery. - Children will be allowed to drink immediately following surgery. If applicable, please bring a bottle or sippy cup to assist with drinking. Juice, water, soda, and popsicles are readily available. For infants on formula, please bring formula the day of surgery. Pacifiers are allowed. Take the following medications with a SIP of water the morning of surgery: _NONE Medications to discontinue per physician ALL VITAMINS AND SUPPLEMENTS 3 DAYS PRE OP Date to take last dose 05/18/22 Please no make-up, nail [place], hairspray, perfume, deodorant, or body powder the day of surgery. No jewelry (including any body piercings) or valuables the day of surgery, leave them at home. Please take a shower or bath the night before, or the morning of, surgery with an antibacterial soap. Wear comfortable, loose fitting clothing. Children are encouraged to wear pajamas. - Jewelry must be removed prior to entering the operating room. Rings and piercings that are not removed may be cut off. - The hospital will not accept responsibility for valuables. - Please leave all valuables, including medications, at home the day of surgery. If you are going home after surgery, a licensed class a regional drivers must drive you home. - NO public transportation without another adult. - We recommend that an adult stay with you for 24 hours following discharge. - We also recommend that you do not drive, make important decision, drink alcoholic beverages, or take any drugs that were not prescribed by your health care provider for at least 24 hours after your discharge time. For Pediatric surgeries, we recommend two adults accompany the child home (only one inside the building at this time). Follow any additional instructions given to you from your surgeon. If you or anyone in your household have experienced Covid symptoms in the past week, please notify your surgeon or the nurse liaison at the phone number below for possible testing. Telephone instructions given to _PATIENT and asked if any additional questions and then verbalized understanding. Patient advised to call surgeon office or pre surgery nurse liaison [phone] if any additional questions.
[2022-05-18 14:21] VITALS: BMI 31.7
--- NOTE | 2022-05-21 09:44 | WPDANESEPPF ---
Anes - Initial Pre Proc Eval Procedure: Operation Date: 05/22/22 08:15 Proposed Procedures p Left Knee Arthroscopy, Proceed As Indicated - Donte Owen MD Date/Time: 05/21/22 09:44 Surgeon: Donte Owen MD Pre Op Diagnosis: leflt knee recurrent medial meniscal tear Patient Data Age: 66 Gender: M Height: 1.75 m Weight: 97.55 kg Allergies Allergy/AdvReac Type Severity Reaction Status Date / Time [id number]-ZBK-[id number] Reductase AdvReac Muscle Pain Verified 05/22/22 06:58 Inhibitor [Frsidao-Efa-Szh Reductase Inhibitor] Home Medications Medication Instructions Recorded Confirmed Type omega-3 fatty acids 1,000 mg 2,000 mg PO BID #90 caps 03/06/20 05/22/22 Rx capsule (Fish Oil Concentrate) fenofibrate micronized 134 mg 134 mg PO DAILY #90 caps 03/11/20 05/18/22 Rx capsule diphenhydramine HCl 50 mg capsule 50 mg PO .nightly PRN Sleep 06/25/20 05/18/22 History ([facility]) tamsulosin 0.4 mg capsule See Rx Instructions .Route 03/05/21 05/18/22 Rx .COMPLEX #90 caps ezetimibe 10 mg tablet (Zetia) 10 mg PO DAILY #90 tabs 03/26/21 05/18/22 Rx Nexletol 180 mg tablet (bempedoic 180 mg PO DAILY #90 tabs 07/03/21 05/18/22 Rx acid) esomeprazole magnesium 40 mg 40 mg PO DAILY #90 caps 07/10/21 05/18/22 Rx capsule,delayed release (Nexium) chlorhexidine gluconate 4 % 1 applic topical ONCE #237 mL 05/15/22 05/18/22 Rx topical liquid (Hibiclens) Patient hx anesthesia problems: none Family hx anesthesia problems: none Results Review: All pre-operative results and documents have been reviewed as part of the pre-operative evaluation. [facility] Past Medical History Medical History Abnormal thyroid function test BMI 29.0-29.9,adult BMI 31.0-31.9,adult BMI 32.0-32.9,adult Colon cancer screening Cough Elevated homocysteine Encounter for preventive health examination Encounter for routine adult health examination without abnormal findings Encounter for special screening examination for neoplasm of prostate Exposure to COVID-19 virus Fever Follow up Frequent stools GERD (gastroesophageal reflux disease) Hx of colonic polyps Hyperlipidemia Knee effusion Knee Injury Left knee pain LLQ abdominal pain Nausea Nocturia Numbness and tingling in left hand On care home drug therapy KATELYN (obstructive sleep apnea) RBBB (right bundle branch block) Skin tag Statin intolerance Urinary urgency Vitamin D deficiency Wears glasses Surgical History Surgical History History of hernia repair History of right knee surgery Family History Family History Father Malignant neoplasm of prostate Mother Family history of malignant neoplasm of breast in first degree relative Other Diabetes mellitus Family history of arthritis Family history of malignant neoplasm Hypertension Social History Social History (Updated 04/02/22 @ 11:54 by Beryl Mccall MA) Smoking status: Never smoker Second hand tobacco smoke exposure: No Alcohol intake: current Drinks per week: 5 Substance use: never Substance use type: does not use Living arrangements: with family Gender identity (if verbalized by the patient): Male Sexual Orientation (if Verbalized by the Patient): Straight or Heterosexual Spiritual care concerns: No Anes - Eval Final PreProcedure Day of Procedure 05/21/22 09:44 Patient weight: obese Heart: regular rate and rhythm Lungs: clear to auscultation Airway: Mallampati scale class III Neurological: alert and oriented Last oral intake: >/= 8 hours ASA classification: III Emergent: no Anesthetic plan: proceed Anesthesia type and monitoring: general LMA and standard monitoring Results Review: All pre-operative results and documents have been reviewed as part of the pre-operative e
[2022-05-22] VITALS (9 sets, daily range): BP systolic 105–140; BP diastolic 63–89; PULSE 70–80; RESP 12–25; TEMP 36.5; O2SAT 95–99; BMI 32.5
--- NOTE | 2022-05-22 07:20 | SUR.PREOP ---
0728- Patient verbalized understanding of crutch use and has crutches to use at home. Declined crutch training this AM.
--- NOTE | 2022-05-22 07:26 | WPDHPUPDATE1 ---
History and Physical Update Update Date/Time: 05/22/22 07:26 History and Physical has been reviewed, including an updated exam of the patient. There are NO changes in the patient's condition. Risks, benefits, and alternatives have been discussed and questions answered. Patient agrees to proceed with procedure.
[2022-05-22] MEDS: ACETAMINOPHEN 500 MG TABLET 1000 MG PO (07:30)
[2022-05-22] MEDS: CELECOXIB 200 MG CAPSULE PO (07:30)
[2022-05-22] MEDS: LACTATED RINGERS 1,000 ML 30 ML IV CONT (08:10)
[2022-05-22] MEDS: ceFAZolin 2 GM/D5W 50 ML 2 GM/50 ML BAG IVPB (08:40)
[2022-05-22] MEDS: BUPIVACAINE HCL 0.5% PF 30 ML VIAL INFILTRATE (08:57)
--- NOTE | 2022-05-22 10:06 | W.PM.PROC2 ---
Procedure Note - Detailed Date of Procedure 05/22/22 Pre-op Diagnosis leflt knee recurrent medial meniscal tear Post-op Diagnosis Same Procedure Performed LEFT KNEE SCOPE Surgeon Donte Owen MD Anesthesia General Description of Procedure PATIENT WAS TAKEN TO THE OR. THE LEFT LEG WAS PREPPED AND DRAPED STERILE. INCISIONS WERE MADE OVER THE PRIOR PORTAL HOLES. TROCARS WERE PLACED IN THE KNEE JOINT IN THE USUAL FASHION. CAMERA WAS INTRODUCED. THERE WAS MINIMAL CHONDROMALACIA TO THE PATELLA FEMORAL JOINT. THERE WAS A LOT OF SYNOVITIS IN ALL COMPARTMENTS. THE MEDIAL COMPARTMENT SHOWED CHONDROMALACIA TO THE MEDIAL FEMORAL CONDYLE. THIS WAS INCREASED SINCE THE LAST PROCEDURE. A SHAVER WAS USED TO PREFORM A CHONDROPLASTY. THERE WAS A RECURRENT COMPLEX MEDIAL MENISCUS TEAR. THE TEAR EXTENDED FROM THE MIDSUBSTANCE AND CONTINUED TO THE POSTERIOR HORN AND ROOT. THE TEAR WAS RESECTED WITH BOTH A BITER AND A SHAVER DOWN TO A SMOOTH BASE. THE INTERCONDYLAR NOTCH WAS IDENTIFIED. THERE WAS SYNOVITIS AROUND THE ACL. SYNOVECTOMY WAS PREFORMED. THE ACL WAS INTACT. THE LATERAL MENISCUS WAS NOT TORN. THE LATERAL COMPARTMENT HAD MINIMAL CHONDROMALACIA. THE PATELLO FEMORAL JOINT UNDERWENT CHONDROPLASTY. THERE WAS GRADE 2 CHONDROMALACIA IN PART OF THE PATELLA. SYNOVECTOMY WAS PREFORMED IN THE SUPERIOR MEDIAL COMPARTMENT. THE WOUNDS WERE APPROXIMATED WITH 4.0 NYLON. STERILE DRESSING WAS APPLIED. PATIENT WAS EXTUBATED AND SENT TO RECOVERY ROOM IN STABLE CONDITION Estimated Blood Loss -10.0 Complications No immediate complications Condition Stable Disposition PACU
[2022-05-22] MEDS: fentaNYL CITRATE INJ (*CRX) 100 MCG/2 ML VIAL 25 MCG IV PUSH ×2 (10:26→10:30)
--- NOTE | 2022-05-22 10:30 | SUR.PHASEI ---
1030: Simple mask removed.
== END 2022-05-22 12:00 | disposition home or self-care (01) ==
PROVIDERS: PCP Internal Medicine; Visit Provider Orthopaedic Surgery
PROC: (CPT 29870; principal; 2022-05-22 08:15)
DX: S83.232A Complex tear of medial meniscus, current injury, left knee, initial encounter (principal); M94.262 Chondromalacia, left knee; M65.862 Other synovitis and tenosynovitis, left lower leg; X58.XXXA Exposure to other specified factors, initial encounter; E78.5 Hyperlipidemia, unspecified; K21.9 Gastro-esophageal reflux disease without esophagitis; G47.33 Obstructive sleep apnea (adult) (pediatric); I45.10 Unspecified right bundle-branch block; E55.9 Vitamin D deficiency, unspecified; E66.9 Obesity, unspecified; Z68.32 Body mass index [BMI] 32.0-32.9, adult
CPT/HCPCS: 29881; A9270; J0690; J1040; J1100; J2250; J2405; J2704; J3010; J7120

== ENCOUNTER 2022-12-17 09:55 | Outpatient (CLI) | payer MEDICARE, SELFPAY ==
[2022-12-17 10:42] LABS: Basophils Absolute Auto 0.1 K/mm3 (0.0-0.1); Basophils Percent Auto 0.9 % (0.2-1.2); Eosinophils Absolute Auto 0.1 K/mm3 (0-0.3); Eosinophils Percent Auto 1.8 % (0-4.4); Hemoglobin 15.4 g/dL (14.0-18.0); Immature Granulocyte Absolute 0.08 K/mm3 (0.00-0.031); Immature Granulocyte Percent A 1.2 % (0-0.5); Lymphocytes Absolute Auto 1.27 K/mm3 (0.9-3.2); Lymphocytes Percent Auto 19.2 % (18.3-44.2); Mean Corpuscular Volume 88.7 fl (80-100); Mean Platelet Volume 9.8 fl (7.4-10.4); Monocytes Absolute Auto 0.9 K/mm3 (0.1-0.6); Monocytes Percent Auto 14.2 % (2.6-8.5); Neutrophils Absolute Auto 4.1 K/mm3 (1.3-6.7); Neutrophils Percent Auto 62.7 % (45.5-73.1); Platelet Count Result 217 k/mm3 (150-375); Red Blood Count 4.96 M/mm3 (4.6-6.20); Red Cell Distribution Width 12.8 % (11.5-14.5); White Blood Count 6.6 K/mm3 (4.5-10.0)
[2022-12-17 10:43] LABS: Appearance Urine Clear (Clear); Bilirubin Urine Negative (Negative); Blood Urine Negative (Negative); Color Urine Yellow (Yellow); Glucose Urine UA Negative (Negative); Ketones Urine Negative (Negative); Leukocyte Esterase Ur Negative LEU/UL (Negative); Nitrate Urine Negative (Negative); Protein Urine Negative (Negative); Specific Grav Ur 1.021 (1.001-1.035); Urobilinogen Urine 0.2 mg/dL (<2.0)
[2022-12-17 10:58] LABS: Alanine Aminotransferase 66 U/L (6-50); Albumin Level 4.7 g/dL (3.5-5.1); Alkaline Phosphatase 55 U/L (38-126); Anion Gap 7 mmol/L (8-16); Aspartate Amino Transferase 51 U/L (17-59); Bilirubin,Total 0.6 mg/dL (0.2-1.3); Blood Urea Nitrogen 39 mg/dL (9-20); Carbon Dioxide 28 mmol/L (22-30); Chloride 101 mmol/L (98-107); Cholesterol 154 mg/dL (0-200); Estimated Glomerular Filt Rate > 60; Glucose 111 mg/dL (65-110); HDL Direct 37 mg/dL; Potassium 4.2 mmol/L (3.4-5.0); Sodium 136 mmol/L (137-145); Triglycerides 178 mg/dL (<150)
[2022-12-17 11:08] LABS: LDL Cholesterol Direct 74 mg/dL
[2022-12-17 11:12] LABS: Hemoglobin A1C 5.4 % (<5.7)
[2022-12-17 11:19] LABS: Free T4 Free Thyroxine 0.99 ng/mL (0.78-2.19); Vitamin D 25 Hydroxy 54.4 ng/mL
[2022-12-17 11:29] LABS: Prostate Specific Antigen 0.4 ng/mL (< OR = 4.0)
[2022-12-17 11:51] LABS: Add Urine Microscopic? NO
[2022-12-17 12:10] LABS: Folic Acid > 20.0 ng/mL (2.76->20)
[2022-12-24 05:03] LABS: Vitamin B1 10 nmol/L (8-30)
[2022-12-25 15:14] LABS: Vitamin B6 37.6 ng/mL (2.1-21.7)
== END 2022-12-17 09:56 | disposition home or self-care (01) ==
PROVIDERS: PCP Internal Medicine; Visit Provider Internal Medicine
DX: E55.9 Vitamin D deficiency, unspecified (principal); E78.1 Pure hyperglyceridemia; E78.2 Mixed hyperlipidemia; R53.83 Other fatigue; R94.6 Abnormal results of thyroid function studies; Z12.5 Encounter for screening for malignant neoplasm of prostate; Z79.899 Other long term (current) drug therapy
CPT/HCPCS: 36415; 80053; 80061; 81003; 82306; 82607; 82746; 83036; 84153; 84207; 84252; 84425; 84439; 84443; 85025; G0103

== ENCOUNTER 2022-12-30 07:28 | Outpatient (CLI) | payer MEDICARE, SELFPAY ==
--- NOTE | ~2022-12-30 | US_ITS ---
EXAMINATION: US abdomen limited DATE: 12/30/2022 08:10 INDICATION: Abnormal liver function tests. Hepatic steatosis. TECHNIQUE: Multiple grayscale and Doppler ultrasound images of the abdomen were obtained. COMPARISON: CT abdomen and pelvis 06/25/2020 FINDINGS: The visualized portions of the head, body, and tail of the pancreas are normal. There is di ffuse hepatic steatosis. No liver surface nodularity. There are cysts in the liver measuring up to 1. 4 cm. There is normal flow in main portal vein. The gallbladder is normal in size and contains sludge . No gallstones or gallbladder wall thickening. There is no sonographic Wayne sign. The common duct is normal and measures 3 mm. IMPRESSION: 1. Diffuse hepatic steatosis. Reviewed, dictated and finalized at location A.
== END 2022-12-30 07:29 ==
LOC: GOSHIMG 07:29
PROVIDERS: PCP Internal Medicine; Visit Provider Internal Medicine
DX: R74.01 Elevation of levels of liver transaminase levels (principal); K76.0 Fatty (change of) liver, not elsewhere classified
CPT/HCPCS: 76705

== ENCOUNTER 2023-04-27 11:44 | Outpatient (CLI) | payer MEDICARE, SELFPAY ==
[2023-04-27 12:22] LABS: Hemoglobin A1C 5.6 % (<5.7)
[2023-04-27 12:32] LABS: Bilirubin,Total 0.5 mg/dL (0.2-1.3); Sodium 136 mmol/L (137-145)
[2023-04-27 12:39] LABS: Alanine Aminotransferase 40 U/L (6-50); Albumin Level 4.5 g/dL (3.5-5.1); Alkaline Phosphatase 51 U/L (38-126); Anion Gap 6 mmol/L (8-16); Aspartate Amino Transferase 36 U/L (17-59); Blood Urea Nitrogen 30 mg/dL (9-20); Calcium 8.7 mg/dL (8.4-10.2); Carbon Dioxide 28 mmol/L (22-30); Chloride 102 mmol/L (98-107); Cholesterol 249 mg/dL (0-200); Estimated Glomerular Filt Rate > 60; Glucose 97 mg/dL (65-110)
[2023-04-27 12:41] LABS: Potassium 3.9 mmol/L (3.4-5.0)
[2023-04-27 12:50] LABS: Free T4 Free Thyroxine 0.77 ng/mL (0.78-2.19)
[2023-04-27 12:59] LABS: LDL Cholesterol Direct 84 mg/dL
[2023-04-27 13:01] LABS: Triglycerides 849 mg/dL (<150)
[2023-04-29 19:43] LABS: GGT 35 U/L (3-70)
[2023-05-05 04:52] LABS: Triiodothyronine T3 Free 3.1 pg/mL (2.3-4.2)
== END 2023-04-27 11:45 | disposition home or self-care (01) ==
LOC: ANHLAB 11:47
PROVIDERS: PCP Internal Medicine; Visit Provider Internal Medicine
DX: R79.89 Other specified abnormal findings of blood chemistry (principal); Z79.899 Other long term (current) drug therapy; E78.1 Pure hyperglyceridemia; Z13.1 Encounter for screening for diabetes mellitus; R94.6 Abnormal results of thyroid function studies
CPT/HCPCS: 36415; 80053; 80061; 82977; 83036; 84439; 84443; 84481; J0330; J1100; J2405; J2704

== ENCOUNTER 2023-11-26 08:17 | Outpatient (CLI) | payer MEDICARE, SELFPAY ==
[2023-11-26 13:02] LABS: Cholesterol 144 mg/dL (0-200); HDL Direct 38 mg/dL; Triglycerides 171 mg/dL (<150)
[2023-11-26 13:13] LABS: Alanine Aminotransferase 48 U/L (6-50); Albumin Level 4.3 g/dL (3.5-5.1); Alkaline Phosphatase 51 U/L (38-126); Anion Gap 6 mmol/L (8-16); Aspartate Amino Transferase 72 U/L (17-59); Bilirubin,Total 0.8 mg/dL (0.2-1.3); Blood Urea Nitrogen 27 mg/dL (9-20); Calcium 9.1 mg/dL (8.4-10.2); Carbon Dioxide 30 mmol/L (22-30); Chloride 102 mmol/L (98-107); Estimated Glomerular Filt Rate > 60; Glucose 115 mg/dL (65-110); Sodium 138 mmol/L (137-145)
[2023-11-26 13:15] LABS: LDL Cholesterol Direct 75 mg/dL
[2023-11-26 13:28] LABS: Free T4 Free Thyroxine 0.91 ng/mL (0.78-2.19); Vitamin D 25 Hydroxy 29.1 ng/mL
[2023-11-26 13:29] LABS: Prostate Specific Antigen 0.8 ng/mL (< OR = 4.0)
[2023-11-29 08:59] LABS: GGT 34 U/L (3-70)
== END 2023-11-26 08:18 | disposition home or self-care (01) ==
PROVIDERS: PCP Internal Medicine; Visit Provider Internal Medicine
DX: Z12.5 Encounter for screening for malignant neoplasm of prostate (principal); R74.01 Elevation of levels of liver transaminase levels; E55.9 Vitamin D deficiency, unspecified; R53.83 Other fatigue; E78.1 Pure hyperglyceridemia; Z79.899 Other long term (current) drug therapy
CPT/HCPCS: 36415; 80053; 80061; 82306; 82977; 84153; 84439; 84443; G0103

== ENCOUNTER 2024-04-17 09:37 | Outpatient (CLI) | payer MEDICARE, SELFPAY ==
[2024-04-17 10:27] LABS: Basophils Percent Auto 0.7 % (0.2-1.2); Eosinophils Absolute Auto 0.1 K/mm3 (0-0.3); Eosinophils Percent Auto 2.4 % (0-4.4); Hematocrit 43.8 % (42.0-52.0); Hemoglobin 15.5 g/dL (14.0-18.0); Immature Granulocyte Absolute 0.02 K/mm3 (0.00-0.031); Immature Granulocyte Percent A 0.5 % (0-0.5); Lymphocytes Absolute Auto 1.12 K/mm3 (0.9-3.2); Lymphocytes Percent Auto 26.7 % (18.3-44.2); Mean Corpuscular HGB Conc 35.4 g/dl (32-36); Mean Corpuscular Hemoglobin 31.9 pg (26-34); Mean Corpuscular Volume 90.1 fl (80-100); Monocytes Absolute Auto 0.6 K/mm3 (0.1-0.6); Neutrophils Absolute Auto 2.3 K/mm3 (1.3-6.7); Neutrophils Percent Auto 54.7 % (45.5-73.1); Platelet Count Result 193 k/mm3 (150-375); Red Blood Count 4.86 M/mm3 (4.6-6.20); Red Cell Distribution Width 13.5 % (11.5-14.5); White Blood Count 4.2 K/mm3 (4.5-10.0)
[2024-04-17 10:40] LABS: Alanine Aminotransferase 24 U/L (6-50); Albumin Level 4.6 g/dL (3.5-5.1); Alkaline Phosphatase 43 U/L (38-126); Anion Gap 8 mmol/L (4-12); Aspartate Amino Transferase 28 U/L (17-59); Bilirubin,Total 0.6 mg/dL (0.2-1.3); Blood Urea Nitrogen 33 mg/dL (9-20); Calcium 9.2 mg/dL (8.4-10.2); Carbon Dioxide 32 mmol/L (22-30); Chloride 98 mmol/L (98-107); Cholesterol 158 mg/dL (0-200); Estimated Glomerular Filt Rate > 60; Glucose 103 mg/dL (65-110); HDL Direct 53 mg/dL; Potassium 4.1 mmol/L (3.4-5.0); Sodium 138 mmol/L (137-145); Triglycerides 144 mg/dL (<150)
[2024-04-17 10:52] LABS: LDL Cholesterol Direct 74 mg/dL
[2024-04-17 11:50] LABS: Folic Acid 7.4 ng/mL (2.76->20); Vitamin B12 > 1000.0 pg/mL (239-931)
[2024-04-20 14:33] LABS: PSA, Free 0.4 ng/mL; PSA, Total 1.4 ng/mL (< OR = 4.0); Percent Free Prostate Spec Ag 29 % (calc) (>25)
[2024-04-21 08:18] LABS: GGT 25 U/L
== END 2024-04-17 09:38 | disposition home or self-care (01) ==
PROVIDERS: PCP Internal Medicine; Visit Provider Internal Medicine
DX: E78.5 Hyperlipidemia, unspecified (principal); R94.6 Abnormal results of thyroid function studies; R79.89 Other specified abnormal findings of blood chemistry; E78.1 Pure hyperglyceridemia; K76.0 Fatty (change of) liver, not elsewhere classified; R97.20 Elevated prostate specific antigen [PSA]; Z79.899 Other long term (current) drug therapy
CPT/HCPCS: 36415; 80053; 80061; 82607; 82746; 82977; 84153; 84154; 84439; 84443; 85025

== ENCOUNTER 2024-04-19 09:19 | Outpatient (CLI) | payer MEDICARE, SELFPAY ==
--- NOTE | ~2024-04-19 | US_ITS ---
COMPLETE ABDOMINAL ULTRASOUND Ordering provider: Hola Jackson MD History: . K76.0 - Fatty (change of) liver, not elsewhere classified . Comparison: None. FINDINGS: LIVER: Normal size. Fat infiltration of the liver. The hypoechoic areas suggestive of small cysts. Me asuring 1.2 x 2.7 x 1 cm and 1 x 0.9 x 1.2 cm. No focal hepatic lesions or perihepatic fluid collecti ons are identified. Popliteal vein flow is normal. GALLBLADDER: Small amount enhancing echogenic focus seen most likely polyp. Follow-up advised. No felicia dence for stones, sludge, gallbladder wall thickening or pericholecystic fluid collections. A negativ e sonographic Wayne's sign was noted. BILIARY DUCTS: No evidence for intra or extrahepatic biliary dilation. Common bile duct measures 3.3 mm in diameter which is within normal limits. PANCREAS: Normal echotexture and size. IVC: Patent. IMPRESSION: Fat infiltration of the liver. 2 small cysts in the liver. Echogenic nonmobile focus suggestive of a polyp. Follow-up advised. Otherwise normal limited ultrasound of the abdomen. Reviewed, dictated and finalized at location A. IMPRESSION: Fat infiltration of the liver. 2 small cysts in the liver. Echogenic nonmobile focus suggestive of a polyp. Follow-up advised. Otherwise normal limited ultras ound of the abdomen.
== END 2024-04-19 09:20 ==
LOC: GOSHIMG 09:20
PROVIDERS: PCP Internal Medicine; Visit Provider Internal Medicine
DX: K76.0 Fatty (change of) liver, not elsewhere classified (principal)
CPT/HCPCS: 76705

== ENCOUNTER 2024-04-28 11:14 | Outpatient (CLI) | payer MEDICARE, SELFPAY ==
--- NOTE | ~2024-04-28 | NM_ITS ---
EXAMINATION: NM hepatobiliary w pharm DATE: 04/28/2024 14:25 INDICATION: Cholesterolosis of the gallbladder. COMPARISON: Abdomen ultrasound 04/19/2024 TECHNIQUE: 5.3 mCi Tc-99m mebrofenin (Choletec) was administered intravenously. Scintigraphic images of the abdomen were obtained for one hour. Then, 1.6 mcg sincalide (Kinevac) IV was administered, an d imaging was continued for 30 minutes. FINDINGS: There is normal clearance of radiotracer from the blood pool. There is homogeneous tracer u ptake by the liver. Activity progresses to the bowel and gallbladder. Gallbladder ejection fraction (GBEF) was 62%. Note that most patients with gallbladder dysfunction have GBEF < 35%, which overlaps with the broad normal range of 10-90%. IMPRESSION: 1. Normal hepatobiliary scintigraphy. Reviewed, dictated and finalized at location A.
== END 2024-04-28 11:15 | disposition home or self-care (01) ==
LOC: ANHIMG 11:17
PROVIDERS: PCP Internal Medicine; Visit Provider Internal Medicine
DX: K82.4 Cholesterolosis of gallbladder (principal)
CPT/HCPCS: 78227; A9537; J2805

== ENCOUNTER 2025-02-23 08:05 | Outpatient (CLI) | payer MEDICARE, SELFPAY ==
--- NOTE | ~2025-02-23 | XR_ITS ---
XR hand RT min 3V 02/23/2025 08:18 Indication: Right hand pain Procedure: 4 views right hand Comparison: No prior studies for comparison. Findings: No fracture, subluxation or dislocation. Mild polyarticular osteoarthritis. No soft tissue abnormality. No foreign bodies. Small ossific density dorsal to the third DIP joint, likely related t o old trauma. Impression: 1: Mild polyarticular osteoarthritis. Reviewed, dictated and finalized at location A. Impression: 1: Mild polyarticular osteoarthritis.
== END 2025-02-23 08:06 | disposition home or self-care (01) ==
LOC: GOSHIMG 08:06
PROVIDERS: PCP Internal Medicine; Visit Provider Internal Medicine
DX: M19.041 Primary osteoarthritis, right hand (principal)
CPT/HCPCS: 73130

== ENCOUNTER 2025-05-17 08:46 | Outpatient (CLI) | payer MEDICARE, SELFPAY ==
--- NOTE | ~2025-05-17 | US_ITS ---
US abdomen limited INDICATION: Liver disease PROCEDURE: Realtime right upper abdominal ultrasound. COMPARISON: Ultrasound dated 04/19/2024 FINDINGS: The pancreas is normal without focal mass or pancreatic ductal dilation. There is a 1.4 cm liver cyst. There is normal directional flow in the portal vein. There is a 4 mm gallbladder polyp. No stones, gallbladder wall thickening or pericholecystic fluid. Common bile duct measures 3 mm. No sonographic Wayne's sign. IMPRESSION: 1: Gallbladder polyp measuring 4 mm. Reviewed, dictated and finalized at location O.
== END 2025-05-17 08:47 | disposition home or self-care (01) ==
LOC: GOSHIMG 08:47
PROVIDERS: PCP Internal Medicine; Visit Provider Internal Medicine
DX: K76.89 Other specified diseases of liver (principal); K82.4 Cholesterolosis of gallbladder
CPT/HCPCS: 76705

== ENCOUNTER 2025-06-08 09:48 | Outpatient (CLI) | payer MEDICARE, SELFPAY ==
--- OUTSIDE RECORDS SUMMARY | 2025-06-08 09:52 | XMS_ITS | Clinical Summary ---
Author Organization [facility] Address [address] [address] Care Team Providers Care Corporate Associate Attorney Name Role Phone Hola Jackson MD Primary Care Provider [phone] Source Comments [facility] [employer],non-owned Affiliates and Associated Physician Practices is amultiple site organization consisting of ambulatory clinics and hospital sitesin [place], [place], [place] and [place]. This disclosure is being madepursuant to the Care Everywhere program and may not contain all information available regarding this patient. Last updated 18.[facility] [employer] Allergies No known active allergies Medications * Be aware that medications may not be up to date on this document. Alwaysverify current medications with the patient. Nexlizet 180-10 MG TABS Take 1 tablet by mouth once daily 12/24/2023 Active tamsulosin (Flomax) 0.4 MG capsule Take 1 (one) capsule by mouth once daily 2023 Active ezetimibe (Zetia) 10 MG tablet Take 1 (one) tablet by mouth once daily Active folic acid (Folvite) 1 MG tablet Take 1 (one) tablet by mouth once daily Active meloxicam (Mobic) 15 MG tablet Take 1 tablet by mouth once daily 30 tablet 5 12/25/2024 Active Active Problems Problem Noted Date Diagnosed Date Primary osteoarthritis of left knee 01/19/2024 Social History Tobacco Use Types Packs/Day Years Used Date Smoking Tobacco: Never Assessed PHQ-2 Answer Date Recorded Patient Health Questionnaire-2 Score 1 01/17/2024 Sex and Gender Information Value Date Recorded Sex Assigned at Not on file Legal Sex Male 8:28 AM CDT Gender Identity Not on file Sexual Orientation Not on file Last Filed Vital Signs Vital Sign Reading Time Taken Comments Blood Pressure - - Pulse - - Temperature - - Respiratory Rate - - Oxygen Saturation - - Inhaled Oxygen Concentration - - Weight 95.7 kg (211 lb) 01/17/2024 3:08 PM CDT Height 180.3 cm (5' 11) 01/17/2024 3:08 PM CDT Body Mass Index 29.43 01/17/2024 3:08 PM CDT Plan of Treatment Health Maintenance Due Date Last Done Comments COLOGUARD (AGES 45-75) - COL ON CA SCREENING 1956 COLON MONITORING 1956 COLONOSCOPY - COLON CA SCREENING 1956 CT COLONOGRAPHY - COLON CA SCREENING 1956 Colorectal Cancer Screening 1956 FIT - COLON CA SCREENING 1956 FLEX SIG - COLON CA SCREENING 1956 LIPID TESTING 1955 MEDICARE AWV 12 MONTHS 1956 HEPATITIS C SCREENING 11/20/1974 DTAP/TDAP/TD VACCINES (1 - Tdap) 11/25/1975 PNEUMOCOCCAL VACCINE 50+ (1 of 1 - PCV) 2006 ZOSTER VACCINE (1 of 2) 2006 SCREENING FOR DIABETES 01/17/2024 DEPRESSION SCREENING 09/20/2024 01/17/2024 COVID-19 VACCINE (1 - 2023-2 5 season) 2025 INFLUENZA VACCINE (#1) 2025 Respiratory Syncytial Virus (RSV) Vaccine Pt: or over 60 yrs (1 - 1-dose 75+ series) 11/25/2031 HEPATITIS B VACCINE Aged Out No longe r eligible based on patient's age to complete this topic HIB VACCINE Aged Out No longer eligi ble based on patient's age to complete this topic HPV VACCINE Aged Out No longer eligi ble based on patient's age to complete this topic MENINGOCOCCAL (Group B) VACC INE SHARED DECISION-MAKING Aged Out No longer eligibl e based on patient's age to complete this topic MENINGOCOCCAL GROUPS A/C/Y/W VACCINE Aged Out No longer eligible b ased on patient's age to complete this topic Insurance MEDICARE [facility] Care Teams Corporate Associate Attorney Relationship Specialty Start Date End Date Hola Jackson MD [address] [place] [id number] PCP - General 12/30/20
[2025-06-08 10:30] LABS: Hematocrit 45.5 % (42.0-52.0); Hemoglobin 15.5 g/dL (14.0-18.0); Immature Granulocyte Percent A 0.7 % (0-0.5); Lymphocytes Absolute Auto 1.58 K/mm3 (0.9-3.2); Mean Corpuscular HGB Conc 34.1 g/dl (32-36); Mean Corpuscular Hemoglobin 30.8 pg (26-34); Mean Corpuscular Volume 90.5 fl (80-100); Nucleated Red Blood Cells Absolute Auto 0.000 K/mm3 (0.0-0.012); Nucleated Red Blood Cells Perc 0.0 % (0.0-0.2); Platelet Count Result 200 k/mm3 (150-375); Red Blood Count 5.03 M/mm3 (4.6-6.20); White Blood Count 5.6 K/mm3 (4.5-10.0)
[2025-06-08 10:47] LABS: Hemoglobin A1C 5.2 % (<5.7)
[2025-06-08 10:51] LABS: Alanine Aminotransferase 19 U/L (6-50); Albumin Level 4.5 g/dL (3.5-5.1); Alkaline Phosphatase 44 U/L (38-126); Anion Gap 8 mmol/L (4-12); Aspartate Amino Transferase 27 U/L (17-59); Bilirubin,Total 0.7 mg/dL (0.2-1.3); Blood Urea Nitrogen 51 mg/dL (9-20); Calcium 9.6 mg/dL (8.4-10.2); Carbon Dioxide 28 mmol/L (22-30); Chloride 101 mmol/L (98-107); Cholesterol 120 mg/dL (0-200); Estimated Glomerular Filt Rate > 60; Glucose 93 mg/dL (65-110); HDL Direct 56 mg/dL; Potassium 4.7 mmol/L (3.4-5.0); Sodium 137 mmol/L (137-145); Total Protein 7.7 g/dL (6.3-8.2); Triglycerides 82 mg/dL (<150)
[2025-06-08 11:09] LABS: Free T4 Free Thyroxine 0.98 ng/dL (0.78-2.19)
[2025-06-08 11:27] LABS: Thyroid Stimulating Hormone 1.630 uIU/mL (0.465-4.680)
== END 2025-06-08 09:49 | disposition home or self-care (01) ==
PROVIDERS: PCP Internal Medicine; Visit Provider Internal Medicine
DX: R94.6 Abnormal results of thyroid function studies (principal); Z00.00 Encounter for general adult medical examination without abnormal findings; E78.1 Pure hyperglyceridemia; E78.2 Mixed hyperlipidemia; Z79.899 Other long term (current) drug therapy; E55.9 Vitamin D deficiency, unspecified
CPT/HCPCS: 36415; 80053; 80061; 82306; 83036; 84439; 84443; 85025